=== PATIENT | female | born 1990 | race Caucasian/White ===

== ENCOUNTER → 2023-10-15 | Outpatient (CLI) | payer OTHER ==
--- NOTE | 2023-10-15 12:55 | XR ---
EXAM TYPE: LUMBAR SPINE X RAY SERIES COMPARISON: NONE HISTORY: Pain TECHNIQUE: 4 views are submitted. FINDINGS: Alignment is anatomic. The pedicles are intact. The transverse processes are intact. There is no s pondylolysis or spondylolisthesis. Tiny anterior spurs at multiple levels. IMPRESSION: 1. No acute process. If concern for disc herniation consider follow-up MRI.
--- NOTE | 2023-10-15 12:57 | XR ---
EXAMINATION TYPE: XR wrist complete RT DATE OF EXAM: 10/15/2023 COMPARISON: NONE HISTORY: Pain TECHNIQUE: Four views submitted. FINDINGS: The osseous structures are intact. The joint spaces are preserved and there is no acute fracture or dislocation. IMPRESSION: 1. No definite acute fracture or dislocation if symptoms persist, follow-up study in 7 to 10 days wo uld be suggested
== END | disposition home or self-care (01) ==
LOC: RADXRMAIN 12:25
PROVIDERS: ATTEND Emergency Medicine
DX: S39.012A Strain of muscle, fascia and tendon of lower back, initial encounter (principal); S63.501A Unspecified sprain of right wrist, initial encounter; M25.531 Pain in right wrist; X58.XXXA Exposure to other specified factors, initial encounter
CPT/HCPCS: 72100

== ENCOUNTER → 2023-10-29 | Outpatient (CLI) | payer OTHER ==
--- NOTE | 2023-10-29 16:57 | XR ---
EXAMINATION TYPE: XR wrist complete RT DATE OF EXAM: 10/29/2023 COMPARISON: 10/15/2023 HISTORY: 33-year-old female S63.501D UNSPECIFIED SPRAIN OF RIGHT WRIST, SUBSEQ. Recheck after lifting injury at work TECHNIQUE: 4 views FINDINGS: The radiocarpal and distal radioulnar joint as well as the metacarpal compartment appear in tact. No acute fracture, subluxation, dislocation is seen. Corticated ossific density along the radia l margin of the first MCP joint may reflect sequela of old capsular injury. IMPRESSION: No acute osseous abnormality seen. 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
== END | disposition home or self-care (01) ==
LOC: RADXRMAIN 16:35
PROVIDERS: ATTEND Emergency Medicine
DX: S63.501D Unspecified sprain of right wrist, subsequent encounter (principal); X58.XXXD Exposure to other specified factors, subsequent encounter; Y99.0 Civilian activity done for income or pay